=== PATIENT | female | born 1950 | race Caucasian/White ===

== ENCOUNTER 2019-08-06 10:02 | Outpatient (CLI) | payer MEDICARE, SELFPAY ==
--- NOTE | 2019-08-06 10:13 | MM_ITS ---
WS: [id number] DIAGNOSTIC BILATERAL DIGITAL MAMMOGRAM WITH CAD HISTORY: HX OF BREAST CA COMPARISON: 08/26/2018, 08/01/2018 and 10/05/2017 TECHNIQUE: Bilateral craniocaudad, mediolateral oblique, and mediolateral views are submitted. Comput er aided detection utilized. Breast composition: There are scattered areas of fibroglandular density. Biopsy clip is still present at the surgical site and a biopsy site in the lateral RIGHT breast. Previously described mass has be en removed. Volume loss in the RIGHT breast and overall mild skin thickening from radiation. Appearan ce of the LEFT breast is negative. MM/[place] [id number] IMPRESSION: BI-RADS: 2-Benign FOLLOW UP: 1 Year Follow-up 1. Recommend diagnostic imaging in one year. 2. Mass is been removed from the LEFT breast and there are postradiation barrett es. Previously placed biopsy clip is still present. Typically these are removed with the specimen. Clip could've migrated but is very closely associated with the biopsy cavity. Yearly evaluation will insure no increasing or new mass at t his site.
== END 2019-08-06 10:03 | disposition home or self-care (01) ==
PROVIDERS: Family Provider Nurse Practitioner; PCP Nurse Practitioner; Visit Provider Internal Medicine Hematology & Oncology
DX: Z85.3 Personal history of malignant neoplasm of breast (principal); Z92.3 Personal history of irradiation
CPT/HCPCS: 77066

== ENCOUNTER 2019-11-21 07:27 | Outpatient (CLI) | payer MEDICARE, SELFPAY ==
--- NOTE | 2019-11-21 13:33 | ONC FU_ITS ---
Dr. Cyr follow up note Patient: Tresa Greene Unit #: [id number]: [id number] Dicatated By: Rd Cyr M.D.Date of Visit:November 21, 2019 Telehealth Progress Note The patient has been informed that the visit may not be secure and acknowledged the information. I have explained the option of participating in a telephone or video visit during the [facility] emergency to the patient. After being given an opportunity to ask questions about and discuss this type of visit, the patient verbally consented to proceeding with the telephone/video visit. the patient understands that this service replaces an office visit and they may be billed and /or responsible for any applicable copayments History of Present Illness: Mrs. 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 No history of hormonal use Patient tolerated procedure well, s/p postlumpectomy radiation and started on Arimidex 1 mg by mouth daily for 5 years on 10/23/2018 Patient denies any specific complaints, no history of nipple discharge or retraction. Evaluated via telemedicine, patient denies any specific complaint today, no nausea or vomiting, no fever or chills, no diarrhea constipation but occasionally hot flashes otherwise tolerating Arimidex well Medications: Albuterol Sulfate 2 puff(s) (of 108 (90 base) mcg/act) Aerosol Powder, Breath Activated Inhalation PRN, Arimidex 1 Tablet (of 1 mg) Oral daily, Aspirin 1 Tablet (of 81 mg) Oral daily, Cetirizine HCl 1 Tablet (of 10 mg) Oral daily, Levothyroxine Sodium 1 Tablet (of 75 mcg) Oral daily, Ocuvite Adult 50+ 1 Capsule Oral daily Allergies: Sulfa Antibiotics Review of Systems: Review of Systems is not available for this patient. Vital Signs: Vitals are not available for this patient. Performance Status: 0 - Fully active, able to carry on all predisease activities without restrictions. (ECOG) Physical Examination: Respiratory - denies any shortness of breath or wheezing, Cardiovascular - denies any tachycardia or palpitation, Gastrointestinal - denies any abdominal pain or fullness, Extremities - denies any edema or rash. Lab/Imaging: Most recent lab results are not available for this patient. Impression: 1. 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 Atypical ductal hyperplasia extending to inked margin focal. estrogen receptor 82%,progesterone receptors 65% 2. Mammogram done on 08/01/2018 showed lobulated solid mass at 9:30, 3 cm from nipple, measuring 1.6 x 0.7 cm, there is additional slightly lobulated hypoechoic area at 11, 3 cm from nipple measuring 0.6 x 0.4 cm with a mild central increased vascularity. There is additional probably complex cyst or lymph node at 10:00, 4 cm from the nipple In left breast, at 2:00, 4 cm from the nipple is a hypoechoic minimally complex cyst. Additional smaller cysts in the upper outer quadrant. Plan: Discussed with patient via telemedicine regarding her mammogram which was done on 08/06/2019 which showed BI-RADS 2 and Clinically, patient is doing well with no signs symptom suggestive of recurrence of disease, tolerating adjuvant therapy with Arimidex/vitamin D/calcium supplement well but with expected side effects e.g. occasionally hot flashes. We'll continue to monitor and then she will return to clinic in 6 month with CBC CMP Signed By: Rd Cyr M.D. <<Signature on File>>
== END 2019-11-21 07:28 | disposition home or self-care (01) ==
LOC: ONCMED 07:28
PROVIDERS: PCP Nurse Practitioner; Visit Provider Internal Medicine Hematology & Oncology
DX: D05.11 Intraductal carcinoma in situ of right breast (principal); Z79.811 Long term (current) use of aromatase inhibitors; Z17.0 Estrogen receptor positive status [ER+]

== ENCOUNTER 2020-09-24 09:41 | Outpatient (CLI) | payer MEDICARE, SELFPAY ==
--- NOTE | 2020-09-24 09:46 | MM_ITS ---
WS: [id number] Bilateral diagnostic digital mammogram, 09/24/2020 Clinical Data: HX OF BREAST CA Comparison: 08/06/2019, 08/01/2018, 10/05/2017 Findings: The left breast is normal. The right breast shows minimal skin thickening. There is a biopsy clip in the upper outer quadrant of the right breast. The remainder of the right breast shows only fibrogland ular tissue. MM/[place] [id number] Impression: 1. Postoperative changes of the upper outer quadrant right breast which remain the same. 2. Skin thickening of the right breast from radiation therapy. 3. Negative left breast unchanged. BIRADS: 2-Benign FOLLOW UP: 1 Year Follow-up The CAD traffic checker was used.
== END 2020-09-24 09:42 | disposition home or self-care (01) ==
LOC: RADSHAW 09:44
PROVIDERS: PCP Physician Assistant; Visit Provider Physician Assistant
DX: Z85.3 Personal history of malignant neoplasm of breast (principal)
CPT/HCPCS: 77066

== ENCOUNTER 2021-11-17 08:50 | Outpatient (CLI) | payer MEDICARE, SELFPAY ==
--- NOTE | 2021-11-17 09:09 | MM_ITS ---
WS: [id number] BILATERAL DIAGNOSTIC DIGITAL BREAST TOMOSYNTHESIS MAMMOGRAM WITH CAD HISTORY: HX OF BREAST CA COMPARISON: 09/24/2020, 08/06/2019, 10/05/2017 and 08/01/2018 Bilateral CC, ML and MLO views with tomosynthesis and synthetic mammography submitted. Computer aided detection analyzed. Breast composition: There are scattered areas of fibroglandular density. No suspicious masses, microc alcifications or architectural distortion. Biopsy clip remains at the surgical site. There is no recu rrent mass or increasing soft tissue. Benign calcifications RIGHT breast. MM/[place] [id number] IMPRESSION: BI-RADS: 2-Benign FOLLOW UP: 1 Year Follow-up
== END 2021-11-17 08:51 | disposition home or self-care (01) ==
PROVIDERS: PCP Physician Assistant; Visit Provider Physician Assistant
DX: Z12.31 Encounter for screening mammogram for malignant neoplasm of breast (principal)
CPT/HCPCS: 77062

== ENCOUNTER 2022-01-31 13:59 | Oncology outpatient (recurring) (ONCR) | payer MEDICARE, SELFPAY ==
[2022-01-31 14:44] LABS: Basophils % 0.4 %; Eosinophils # 0.2 10^3/uL (0.0-0.8); Eosinophils % 2.4 %; Hematocrit 38.7 % (37.0-47.0); Hemoglobin 12.7 g/dL (11.5-15.3); Lymphocytes # 2.2 10^3/uL (0.8-4.8); Lymphocytes % 23.6 %; Mean Corpuscular HGB Conc 32.8 g/dL (30.0-36.0); Mean Corpuscular Hemoglobin 29.1 pg (28.0-34.0); Mean Corpuscular Volume 88.6 fl (81-99); Mean Platelet Volume 10.3 fL (7.4-10.4); Monocytes # 0.6 10^3/uL (0.2-0.9); Monocytes % 6.5 %; Neutrophils # 6.22 10^3/uL (1.8-7.7); Neutrophils % 66.9 %; Nucleated Red Blood Cells % 0 %; Platelet Count 257 10^3/cmm (130-400); Red Blood Count 4.37 10^6/uL (4.1-5.3); Red Cell Distribution Width 13.3 % (12.1-15.1); White Blood Count 9.3 10^3/uL (4.0-10.0)
[2022-01-31 15:11] LABS: Alanine Aminotransferase 33 U/L (0-33); Albumin Level 4.5 g/dL (3.5-5.2); Alkaline Phosphatase 128 IU/L (35-105); Aspartate Amino Transferase 25 U/L (0-32); Blood Urea Nitrogen 19 mg/dL (8-23); Calcium 9.2 mg/dL (8.5-10.5); Carbon Dioxide 27 mmol/L (22-29); Chloride 100 mmol/L (98-107); Globulin 2.8 g/dL (1.3-4.6); Glomerular Filtration Rate 49.1 mL/min (90-130); Glucose 117 mg/dL (65-115); Osmolality Calculated 287 mOsm/kg (285-295); Sodium 137 mmol/L (136-145); Total Bilirubin 0.2 mg/dL (0.15-1.2); Total Protein 7.3 g/dL (6.6-8.7)
[2022-01-31 15:15] LABS: Anion Gap 13.9 (5-19); Potassium 3.9 mmol/L (3.5-5.1)
== END 2022-02-05 23:59 | disposition home or self-care (01) ==
PROVIDERS: PCP Physician Assistant; Visit Provider Internal Medicine Hematology & Oncology
DX: D05.11 Intraductal carcinoma in situ of right breast (principal); Z17.0 Estrogen receptor positive status [ER+]; Z79.811 Long term (current) use of aromatase inhibitors
CPT/HCPCS: 80053; 85025; 99214

== ENCOUNTER 2022-08-04 08:12 | Oncology outpatient (recurring) (ONCR) | payer MEDICARE, SELFPAY ==
[2022-08-04 08:45] LABS: Basophils # 0.1 10^3/uL (0.0-0.1); Basophils % 0.7 %; Eosinophils # 0.3 10^3/uL (0.0-0.8); Eosinophils % 3.7 %; Hematocrit 40.8 % (37.0-47.0); Hemoglobin 12.7 g/dL (11.5-15.3); Lymphocytes # 2.2 10^3/uL (0.8-4.8); Lymphocytes % 25.2 %; Mean Corpuscular HGB Conc 31.1 g/dL (30.0-36.0); Mean Corpuscular Volume 90.1 fl (81-99); Mean Platelet Volume 10.2 fL (7.4-10.4); Monocytes # 0.8 10^3/uL (0.2-0.9); Monocytes % 9.4 %; Neutrophils # 5.36 10^3/uL (1.8-7.7); Neutrophils % 60.8 %; Nucleated Red Blood Cells % 0 %; Platelet Count 280 10^3/cmm (130-400); Red Blood Count 4.53 10^6/uL (4.1-5.3); Red Cell Distribution Width 13.2 % (12.1-15.1); White Blood Count 8.8 10^3/uL (4.0-10.0)
[2022-08-04 08:57] LABS: Alanine Aminotransferase 16 U/L (0-33); Albumin Level 4.3 g/dL (3.5-5.2); Alkaline Phosphatase 131 U/L (35-105); Anion Gap 15.4 (5-19); Aspartate Amino Transferase 17 U/L (0-32); Blood Urea Nitrogen 16 mg/dL (8-23); Calcium 9.3 mg/dL (8.5-10.5); Carbon Dioxide 26 mmol/L (22-29); Chloride 104 mmol/L (98-107); Globulin 3.4 g/dL (1.3-4.6); Glucose 97 mg/dL (65-115); Osmolality Calculated 293 mOsm/kg (285-295); Potassium 4.4 mmol/L (3.5-5.1); Sodium 141 mmol/L (136-145); Total Bilirubin 0.2 mg/dL (0.15-1.2); Total Protein 7.7 g/dL (6.6-8.7)
== END 2022-08-08 23:59 | disposition home or self-care (01) ==
PROVIDERS: PCP Physician Assistant; Visit Provider Internal Medicine Hematology & Oncology
DX: C50.911 Malignant neoplasm of unspecified site of right female breast (principal); Z17.0 Estrogen receptor positive status [ER+]; M85.80 Other specified disorders of bone density and structure, unspecified site; Z79.811 Long term (current) use of aromatase inhibitors
CPT/HCPCS: 36415; 80053; 85025; 99214

== ENCOUNTER 2022-08-31 15:16 | Outpatient (CLI) | payer MEDICARE, SELFPAY ==
--- NOTE | 2022-08-31 | CT_ITS ---
WS: [id number] LDCT LUNG CANCER SCREENING HISTORY: NICOTINE DEPENDENCE TECHNIQUE: Axial imaging performed from the apices to 1 cm below the costophrenic angles. Coronal and sagittal reformats are submitted with axial MIP series. All CT scans at [facility] use at least one of these dose optimization techniques: automated exposure control; mA and/or kV adjustment per patient size (includes targeted exams where dose is matched to clinical indication); or iterativ e reconstruction. DLP: 73.10 mGy.cm DIvol: Mean CTDIvol: 1.60 (mGy) COMPARISON: None available. Diagnostic quality: Mildly limited by breathing artifact. Lung Nodules: No discrete nodules are identified. Subsegmental atelectasis bilaterally in the lower l patricia carlos and lingula. There is mild bronchial wall thickening in the RIGHT lower lobe in part due t o elevation of the RIGHT hemidiaphragm and poor inspiration. There are a few scattered benign calcifi ed granulomata in the RIGHT lung. Micronodule RIGHT upper lobe, image 119. Lungs: Elevated RIGHT hemidiaphragm. Mild interstitial thickening in the periphery of the lungs. Heart: Normal size heart. Scattered coronary artery calcifications. No effusion. Other findings: Mild atherosclerosis aorta. Small benign mediastinal and hilar lymph nodes. Calcified RIGHT hilar lymph node. CT/CT lung screening [id number] IMPRESSION: LUNG-RADS: 1-Negative FOLLOW UP: 12 Month: Continue annual screening with LDCT OTHER FINDINGS (S MODIFIER): None.
== END 2022-08-31 15:17 | disposition home or self-care (01) ==
PROVIDERS: PCP Nurse Practitioner Family; Visit Provider Family Medicine
DX: Z12.2 Encounter for screening for malignant neoplasm of respiratory organs (principal); F17.210 Nicotine dependence, cigarettes, uncomplicated
CPT/HCPCS: 71271

== ENCOUNTER 2023-02-01 12:38 | Outpatient (CLI) | payer MEDICARE, SELFPAY ==
--- NOTE | 2023-02-01 12:56 | MM_ITS ---
WS: [id number] BILATERAL 3D TOMOSYNTHESIS DIGITAL DIAGNOSTIC MAMMOGRAPHY WITH CAD CLINICAL INFORMATION: HX OF BREAST CA HISTORY: History of RIGHT lumpectomy COMPARISON: 2021 TECHNIQUE: Bilateral CC, MLO, and ML views. FINDINGS: Scattered fibroglandular densities bilaterally. Biopsy marker upper outer RIGHT breast. Punctate and lucent centered calcifications. Stable loosely clustered calcifications RIGHT breast. No suspicious focal mass, asymmetry, calcifications, or architectural distortion. No evidence of sagrario gnancy. MM/[place] [id number] IMPRESSION: BI-RADS: 2-Benign FOLLOW UP: 1 Year Follow-up Recommend return to annual diagnostic mammography.
--- NOTE | 2023-02-01 13:30 | XR_ITS ---
WS: [id number] SCREENING DEXA SCAN [place] CLINICAL INFORMATION: Hormone therapy COMPARISON: 2019 FINDINGS: The L1-L4 bone mineral density measures 1.062 g/cm2. This corresponds to a T score score of -1.0 and Z score of -0.5. Left femoral neck bone mineral density measures 0.818 g/cm2. This corresponds to a T score of -1.5 an d Z score of -0.8. Right femoral neck bone mineral density measures 0.803 g/cm2. This corresponds to a T score -1.6of an d Z score of -0.9. Mean femoral neck bone mineral density measures 0.810 g/cm2. This corresponds to a T score of -1.6 an d Z score of -0.8. XR/XR DEXA axial skeleton* [id number] IMPRESSION: Osteopenia lumbar spine at the lower end of the range. Osteopenia femoral necks . Patient's FRAX calculated 10 year probability for major osteoporotic fracture is 12.6 % and osteoporotic hip fracture is 4.3%. Bone mineral density in the lumbar spine has decreased -5.3% since 2019 Bone mineral density in the femoral necks has decreased -8.7% since 2019
== END 2023-02-01 12:39 | disposition home or self-care (01) ==
PROVIDERS: PCP Nurse Practitioner Family; Visit Provider Internal Medicine Hematology & Oncology
DX: C50.911 Malignant neoplasm of unspecified site of right female breast (principal); Z79.811 Long term (current) use of aromatase inhibitors; Z85.3 Personal history of malignant neoplasm of breast
CPT/HCPCS: 77062; 77080; G0279

== ENCOUNTER 2023-02-02 07:56 | Oncology outpatient (recurring) (ONCR) | payer MEDICARE, SELFPAY ==
[2023-02-02 08:16] VITALS: BP 153/84; PULSE 73; RESP 18; TEMP 36.2; O2SAT 95
[2023-02-02 08:49] LABS: Basophils # 0.1 10^3/uL (0.0-0.1); Basophils % 0.8 %; Eosinophils # 0.4 10^3/uL (0.0-0.8); Eosinophils % 5.3 %; Hematocrit 40.6 % (37.0-47.0); Hemoglobin 12.8 g/dL (11.5-15.3); Lymphocytes # 2.1 10^3/uL (0.8-4.8); Lymphocytes % 29.2 %; Mean Corpuscular HGB Conc 31.5 g/dL (30.0-36.0); Mean Corpuscular Hemoglobin 28.4 pg (28.0-34.0); Mean Corpuscular Volume 90.2 fl (81-99); Mean Platelet Volume 10.2 fL (7.4-10.4); Monocytes # 0.7 10^3/uL (0.2-0.9); Monocytes % 9.1 %; Neutrophils # 3.95 10^3/uL (1.8-7.7); Nucleated Red Blood Cells % 0 %; Platelet Count 261 10^3/cmm (130-400); Red Cell Distribution Width 13.3 % (12.1-15.1); White Blood Count 7.2 10^3/uL (4.0-10.0)
[2023-02-02 09:07] LABS: Alanine Aminotransferase 15 U/L (0-33); Albumin Level 4.1 g/dL (3.5-5.2); Alkaline Phosphatase 121 U/L (35-105); Aspartate Amino Transferase 17 U/L (0-32); Blood Urea Nitrogen 17 mg/dL (8-23); Calcium 9.4 mg/dL (8.5-10.5); Carbon Dioxide 28 mmol/L (22-29); Chloride 103 mmol/L (98-107); Globulin 2.7 g/dL (1.3-4.6); Glucose 105 mg/dL (65-115); Osmolality Calculated 292 mOsm/kg (285-295); Sodium 140 mmol/L (136-145); Total Bilirubin 0.2 mg/dL (0.15-1.2); Total Protein 6.8 g/dL (6.6-8.7)
[2023-02-02 09:10] LABS: Anion Gap 13.6 (5-19); Potassium 4.6 mmol/L (3.5-5.1)
== END 2023-02-05 23:59 | disposition home or self-care (01) ==
PROVIDERS: PCP Nurse Practitioner Family; Visit Provider Internal Medicine Hematology & Oncology
DX: C50.811 Malignant neoplasm of overlapping sites of right female breast (principal); Z17.0 Estrogen receptor positive status [ER+]; M85.89 Other specified disorders of bone density and structure, multiple sites; Z79.811 Long term (current) use of aromatase inhibitors; Z79.899 Other long term (current) drug therapy; Z91.148 Patient's other noncompliance with medication regimen for other reason
CPT/HCPCS: 36415; 80053; 85025; 99214

== ENCOUNTER 2023-08-03 13:53 | Outpatient (CLI) | payer MEDICARE, SELFPAY ==
--- NOTE | 2023-08-03 14:30 | XR_ITS ---
WS: [id number] DEXA (DUAL ENERGY X-RAY ABSORPTIOMETRY) Bone mineral density was performed using a Acteavo machine. HISTORY: Follow up COMPARISON: 02/01/2023 Lumbar spine BMD (L1-L4): 1.056 g/cm2 T score: -1.0 Z score: -0.5 Total hip BMD: Left: 0.839 g/cm2. T score: -1.3 Z score: -0.6 Right: 0.837 g/cm2. T score: -1.4 Z score: -0.6 10 year probability of a major osteoporotic fracture is 11.1%. Compared to the prior study from 02/01/2023. Lumbar spine bone mineral density has decreased by 0.6%. Bilateral hips bone mineral density has increased by 3.5%. IMPRESSION: OSTEOPENIA based upon the WHO classification for females. Significant increase in bone mineral density within the hips since the prior study.
== END 2023-08-03 13:54 | disposition home or self-care (01) ==
LOC: RAD 13:54
PROVIDERS: PCP Nurse Practitioner Family; Visit Provider Nurse Practitioner Family
DX: C50.911 Malignant neoplasm of unspecified site of right female breast (principal); Z79.811 Long term (current) use of aromatase inhibitors; M85.80 Other specified disorders of bone density and structure, unspecified site
CPT/HCPCS: 77080

== ENCOUNTER 2023-08-17 07:57 | Oncology outpatient (recurring) (ONCR) | payer MEDICARE, SELFPAY ==
[2023-08-17 08:45] LABS: Basophils # 0.1 10^3/uL (0.0-0.1); Basophils % 0.5 %; Eosinophils # 0.3 10^3/uL (0.0-0.8); Eosinophils % 2.7 %; Hematocrit 42.3 % (36-47); Lymphocytes % 20.4 %; Mean Corpuscular HGB Conc 31.7 g/dL (30-55); Mean Corpuscular Hemoglobin 28.9 pg (27-33); Mean Corpuscular Volume 91.2 fl (85-98); Monocytes # 0.6 10^3/uL (0.2-0.9); Monocytes % 6.1 %; Neutrophils # 6.85 10^3/uL (1.8-7.7); Nucleated Red Blood Cells % 0 %; Platelet Count 258 10^3/cmm (157-399); Red Blood Count 4.64 10^6/uL (3.85-5.65); Red Cell Distribution Width 13.7 % (12.1-15.1); White Blood Count 9.79 10^3/uL (3.29-11.43)
[2023-08-17 09:02] LABS: Alanine Aminotransferase 16 U/L (0-33); Alkaline Phosphatase 104 U/L (35-105); Aspartate Amino Transferase 15 U/L (0-32); Blood Urea Nitrogen 18 mg/dL (8-23); Calcium 9.7 mg/dL (8.5-10.5); Carbon Dioxide 29 mmol/L (22-29); Chloride 104 mmol/L (98-107); Globulin 3.4 g/dL (1.3-4.6); Glucose 98 mg/dL (65-115); Osmolality Calculated 294 mOsm/kg (285-295); Sodium 141 mmol/L (136-145); Total Bilirubin 0.4 mg/dL (0.15-1.2); Total Protein 7.4 g/dL (6.6-8.7)
== END 2023-09-06 23:59 | disposition home or self-care (01) ==
PROVIDERS: Nurse Practitioner Family; PCP Nurse Practitioner Family; Visit Provider Internal Medicine Hematology & Oncology
DX: D05.11 Intraductal carcinoma in situ of right breast (principal); Z92.3 Personal history of irradiation; Z79.811 Long term (current) use of aromatase inhibitors; Z87.891 Personal history of nicotine dependence; M85.89 Other specified disorders of bone density and structure, multiple sites; Z78.0 Asymptomatic menopausal state
CPT/HCPCS: 36415; 80053; 85025; 99214

== ENCOUNTER 2024-02-05 09:41 | Outpatient (CLI) | payer MEDICARE, SELFPAY ==
--- NOTE | 2024-02-05 10:00 | MM_ITS ---
WS: [id number] DIAGNOSTIC BILATERAL DIGITAL BREAST TOMOSYNTHESIS MAMMOGRAPHY WITH CAD HISTORY: History of RIGHT lumpectomy and breast cancer. COMPARISON: 02/01/2023, 11/17/2021, 08/01/2018 TECHNIQUE: Bilateral craniocaudad, mediolateral oblique, and mediolateral views are submitted with to mosynthesis and SM. Computer aided detection utilized. Breast composition: There are scattered areas of fibroglandular density. Slight volume loss RIGHT marcy ast from the prior lumpectomy. There is also a biopsy clip in the anterior RIGHT breast. No suspiciou s masses or calcifications within either breast. No distortion. MM/[place] [id number] IMPRESSION: BI-RADS: 2-Benign FOLLOW UP: 1 Year Follow-up
== END 2024-02-05 09:42 | disposition home or self-care (01) ==
LOC: RAD 09:42
PROVIDERS: PCP Nurse Practitioner Family; Visit Provider Nurse Practitioner Family
DX: C50.911 Malignant neoplasm of unspecified site of right female breast (principal); R92.323 Mammographic fibroglandular density, bilateral breasts; Z98.890 Other specified postprocedural states
CPT/HCPCS: 77062; G0279

== ENCOUNTER 2024-03-05 10:46 | Outpatient (CLI) | payer MEDICARE, SELFPAY ==
--- NOTE | 2024-03-05 10:57 | CT_ITS ---
WS: [email or web address] LDCT LUNG CANCER SCREENING TECHNIQUE: Noncontrast CT of the chest with coronal and sagittal reformatted images. CLINICAL INFORMATION: HX OF TOBACCO USE COMPARISON: 2022 DLP: 111.51 mGy.cm DIvol: Mean CTDIvol: 2.90 (mGy) All CT scans at [facility] use at least one of these dose optimization techniques: automat ed exposure control; mA and/or kV adjustment per patient size (includes targeted exams where dose is matched to clinical indication); or iterative reconstruction. FINDINGS: Chronic elevation hemidiaphragm. A few scattered micronodules unchanged compared to previous. Calcifi ed granulomas. No new suspicious pulmonary opacities. Subsegmental atelectasis RIGHT lower lobe poste romedially. Subsegmental ectasis RIGHT middle lobe. Aortic calcification. Coronary calcification. No mediastinal or hilar lymphadenopathy. Calcified aicha r lymph nodes. Adrenal glands are normal. Hepatomegaly. Small esophageal hernia. Mild thoracic curve. Mild thoracic kyphosis. CT/CT lung screening [id number] IMPRESSION: LUNG-RADS: 2-Benign Appearance or Behavior FOLLOW UP: 12 Month: Continue annual screening with LDCT
== END 2024-03-05 10:47 | disposition home or self-care (01) ==
LOC: RAD 10:50
PROVIDERS: PCP Nurse Practitioner Family; Visit Provider Nurse Practitioner Family
DX: Z87.891 Personal history of nicotine dependence (principal); I70.0 Atherosclerosis of aorta; I25.10 Atherosclerotic heart disease of native coronary artery without angina pectoris; M40.294 Other kyphosis, thoracic region; R91.8 Other nonspecific abnormal finding of lung field
CPT/HCPCS: 71271

== ENCOUNTER → 2024-04-09 14:38 | Outpatient (BNVA) | payer MEDICARE, SELFPAY | PROVIDERS: PCP Nurse Practitioner Family; Visit Provider Surgery | DX: K59.09 Other constipation (principal); Z80.0 Family history of malignant neoplasm of digestive organs | CPT/HCPCS: 99204 ==

== ENCOUNTER 2024-04-29 08:46 | Day surgery (SDC) | payer MEDICARE, SELFPAY ==
--- NOTE | 2024-04-29 09:03 | P.HPUD_ITS ---
Surgery/Procedure H&P Update DATE OF PROCEDURE: April 29, 2024 DATE H&P PERFORMED: 04/09/24 H&P UPDATE INFORMATION: I have reviewed H&P completed within last 30 days, I have examined patient prior to procedure, No changes to prior documentation and H&P is in [facility] EMR on date indicated PLANNED PROCEDURE: Operation Date: 04/29/24 10:20 Proposed Procedures p Colonoscopy - [id number],G0105,Z12.11(Not Applicable) - Matt Barnett MD
[2024-04-29 09:07] VITALS: BP 151/104; PULSE 80; RESP 17; TEMP 36.3; O2SAT 96; BMI 39.4
[2024-04-29] MEDS: sodium chloride 0.9% 1,000 ML 30 ML IV (09:57)
--- NOTE | 2024-04-29 10:05 | ANES.PREANE2 ---
Pre-Anesthetic Assessment Height/Weight: Height 1.63 m Weight 104.326 kg Temp Pulse Resp BP Pulse Ox O2 Del Method 97.3 F L 80 17 151/104 96 Room Air 04/29/24 09:07 04/29/24 09:07 04/29/24 09:07 04/29/24 09:07 04/29/24 09:07 04/29/24 09:07 Operation Date: 04/29/24 10:20 Proposed Procedures p Colonoscopy - [id number],G0105,Z12.11(Not Applicable) - Matt Barnett MD Familial anesthetic complications: None Was Beta Nimisha taken within 24 hours: N/A Was Clonidine taken within 24 hours: N/A Last intake: Intake Last Liquid Date 04/28/24 Last Liquid Time 22:00 Last Solid Date 04/27/24 Last Solid Time 20:00 Social No alcohol and No tobacco marijuana Exam alert, oriented x 3, clear to auscultation bilaterally and regular rate & rhythm Airway Mallampati: Class II Dentition: false CV/HEM Hypertension GI Gastroesophageal Reflux Disease Metabolic Morbid Obesity and Thyroid Disease Anesthetic Plan ASA status: 3 Anesthesia: MAC Risk of > 500 ml blood loss (7ml/kg in children): No Medications/Allergies Home Medications Medication Instructions Recorded Confirmed Last Taken Type aspirin 81 mg capsule 81 mg PO DAILY 01/31/22 04/29/24 04/28/24 History brimonidine 0.1 % eye drops See Rx Instructions ophthalmic 01/31/22 04/29/24 04/27/24 History (Alphagan P) (eye) BID latanoprost 0.005 % eye drops 1 drp ophthalmic (eye) DAILY 01/31/22 04/29/24 04/28/24 History levothyroxine 88 mcg capsule 88 mcg PO DAILY 01/31/22 04/29/24 04/29/24 History vit C 250 mg-vit E 90 mg-zinc 40 1 tab PO BID 01/31/22 04/29/24 04/28/24 History mg-copper 1 [id number] capsule (PreserVision AREDS-2) albuterol sulfate 90 mcg/actuation 2 inh inhalation Q6H PRN Shortness 08/04/22 04/29/24 Unknown History breath activated powder inhaler Of Breath Or Wheezing levocetirizine 5 mg tablet 5 mg PO DAILY 08/04/22 04/29/24 04/28/24 History omeprazole 20 mg capsule,delayed 20 mg PO DAILY PRN heart burn 08/04/22 04/29/24 04/29/24 History release amlodipine 2.5 mg tablet 2.5 mg PO DAILY 08/17/23 04/29/24 04/24/24 History cholecalciferol (vitamin D3) 50 50 mcg PO DAILY #30 caps 09/07/23 04/29/24 04/28/24 Rx mcg (2,000 unit) capsule Stool Softener 1 tab PO DAILY 04/24/24 04/29/24 04/27/24 History calcium 600 mg capsule 600 mg PO BID 04/24/24 04/29/24 04/28/24 History inulin 2.5 gram chewable tablet 5 g PO DAILY 04/24/24 04/29/24 04/28/24 History Allergies Allergy/AdvReac Type Severity Reaction Status Date / Time Sulfa (Sulfonamide Allergy Mild ALGY-Rash Verified 04/24/24 12:15 Antibiotics) Current Medications Generic Name Dose Route Start Last Admin Trade Name Freq PRN Reason Stop Dose Admin Sodium Chloride 1,000 mls @ 30 mls/hr 04/29/24 09:00 04/29/24 09:57 Sodium Chloride 0.9% IV 30 mls/hr .Q24H CYDNEY Administration PFSH Anesthesia Medical History Breast cancer, right Family History Mother Cancer colon Other Diabetes Hyperlipidemia Denies family history of CAD (coronary artery disease) Clotting disorder Dementia Psychiatric illness Chronic kidney disease (CKD) Suicide Anesthesia complication Bleeding disorder Lung disease Hypertension Stroke Social History Smoking and tobacco/nicotine status: never used tobacco/nicotine Quit status (tobacco/nicotine): has quit using Year quit tobacco: 2019 Former quit date comment: Smoked for 35 years on and off Alcohol intake: current Alcohol intake frequency: holidays/special occasions only Substance/Drug Use: never Data Anesthesia Cardiac Studies: No Data to Display
[2024-04-29 11:37] VITALS: BP 135/82; PULSE 83; RESP 16; TEMP 36.1; O2SAT 93
[2024-04-29 11:52] VITALS: BP 147/91; PULSE 74; RESP 18; O2SAT 98
--- NOTE | 2024-04-29 12:05 | ANE.PACU2 ---
Inpatient post-anesthesia follow up: Airway intact: Yes Vital signs: Temperature 96.9 F Pulse Rate 74 Respiratory Rate 18 Blood Pressure 147/91 Pulse Oximetry 98 Oxygen Delivery Me thod Room Air Oxygen Flow Rate Fraction of Inspir ed Oxygen Hydration adequate: Yes Nausea and vomiting: No Pain level: 1 Mental status: Baseline
== END 2024-04-29 12:05 | disposition home or self-care (01) ==
PROVIDERS: PCP Nurse Practitioner Family; Visit Provider Surgery
PROC: 0DJD8ZZ Inspection of Lower Intestinal Tract, Via Natural or Artificial Opening Endoscopic (ICD-10-PCS; CPT 45378; principal; 2024-04-29 10:20)
DX: Z12.11 Encounter for screening for malignant neoplasm of colon (principal); D12.5 Benign neoplasm of sigmoid colon; D12.8 Benign neoplasm of rectum; Z79.82 Long term (current) use of aspirin; Z87.891 Personal history of nicotine dependence; I10 Essential (primary) hypertension; E66.01 Morbid (severe) obesity due to excess calories; Z68.39 Body mass index [BMI] 39.0-39.9, adult; Z85.3 Personal history of malignant neoplasm of breast
CPT/HCPCS: 45380; 45385; 88305; J2704; J7030